=== PATIENT | female | born 1985 | race Two or more races ===

== ENCOUNTER 2019-03-26 15:16 | Emergency (ER) | payer OTHER ==
[~2019-03-26] VITALS: Ht 160 cm; Wt 63.5 kg
[2019-03-26 15:37] VITALS: BP 109/63
[2019-03-26] MEDS ORDERED: METH4TAB2 PO (16:21)
--- NOTE | 2019-03-26 16:22 | PHYS DOC ---
Past Medical History Past Medical History: No Pertinent History Past Surgical History: No Surgical History Alcohol Use: None Drug Use: None Adult General Chief Complaint Chief Complaint: ITCHING HPI HPI Patient is a 34 year old female who presents with be in pain urinating, cetirizine and ibuprofen daily of March and stated every time she took the ibuprofen [place] having itching and hives on her upper legs and lower abdomen. She states she took her ibuprofen again on Saturday and began itching and breaking out in a itchy rash on her upper thighs. She states she's gotten better but is here today for the rash. Review of Systems Review of Systems Constitutional: Denies fever or chills [] Eyes: Denies change in visual acuity, redness, or eye pain [] HENT: Denies nasal congestion or sore throat [] Respiratory: Denies cough or shortness of breath [] Cardiovascular: No additional information not addressed in HPI [] GI: Denies abdominal pain, nausea, vomiting, bloody stools or diarrhea [] : Denies dysuria or hematuria [] Musculoskeletal: Denies back pain or joint pain [] Integument: bilateral upper thigh rash or skin lesions [] Neurologic: Denies headache, focal weakness or sensory changes [] Endocrine: Denies polyuria or polydipsia [] All other systems were reviewed and found to be within normal limits, except as documented in this note. Allergies Allergies Allergies Coded Allergies Type Severity Reaction Last Updated Verified No Known Drug Allergies 03/26/19 No Physical Exam Physical Exam Constitutional: Well developed, well nourished, no acute distress, non-toxic appearance. [] HENT: Normocephalic, atraumatic, bilateral external ears normal, oropharynx moist, no oral exudates, nose normal. [] Eyes: PERRLA, EOMI, conjunctiva normal, no discharge. [] Neck: Normal range of motion, no tenderness, supple, no stridor. [] Cardiovascular:Heart rate regular rhythm, no murmur [] Lungs & Thorax: Bilateral breath sounds clear to auscultation [] Abdomen: Bowel sounds normal, soft, no tenderness, no masses, no pulsatile masses. [] Skin: Bilateral upper thigh red patchy rash that appears to be hives. Warm, dry, no erythema, no rash. [] Back: No tenderness, no CVA tenderness. [] Extremities: No tenderness, no cyanosis, no clubbing, ROM intact, no edema. [] Neurologic: Alert and oriented X 3, normal motor function, normal sensory function, no focal deficits noted. [] Psychologic: Affect normal, judgement normal, mood normal. [] Current Patient Data Vital Signs Vital Signs Date Time Temp Pulse Resp B/P (MAP) Pulse Ox O2 Delivery O2 Flow Rate FiO2 03/26/19 15:37 98.4 88 18 109/63 (78) 99 Room Air 98.4 EKG EKG [] Radiology/Procedures Radiology/Procedures [] Course & Med Decision Making Course & Med Decision Making Patient is a 34 year old female who presents with be in pain urinating, cetirizine and ibuprofen daily of March and stated every time she took the ibuprofen Saturday last and began having itching and hives on her upper legs and lower abdomen. She states she took her ibuprofen again on Saturday and began itching and breaking out in a itchy rash on her upper thighs. She states she's gotten better but is here today for the rash. Patient has a patchy red rash that is very itchy for the patient on her upper thighs bilaterally. Patient denies shortness of breath, chest pain, vomiting or nausea or dizziness. Patient denies any itching in her mouth. When examining oral cavity there is no rash or hives seen in the mouth and throat and there is no swelling of the oral cavity. Patient states that this rash has gotten better since Saturday and was more widespread. Vital signs within normal limits. Lungs are clear to auscultation in all lobes. Speaks in full clear sentences. Patient is put on a Medrol Dosepak and told to stop taking ibuprofen. Patient can take Tylenol for any kind of pain. Patient is told to continue taking the ranitidine and cetirizine. Dragon Disclaimer Dragon Disclaimer This electronic medical record was generated, in whole or in part, using a voice recognition dictation system. Departure Departure Impression: Primary Impression: Hives Disposition: 01 HOME, SELF-CARE Condition: STABLE Referrals: UNKNOWN PCP NAME (PCP) Patient Instructions: Hives Additional Instructions: Do not take ibuprofen. Take Tylenol for pain. Take medication as prescribed. Scripts Methylprednisolone (MEDROL) 4 Mg Tab.ds.pk 1 PKG PO UD, #1 PKG Prov: MALLORIE YIP APRN 03/26/19 MALLORIE YIP APRN Mar 26, 2019 16:21
== END 2019-03-26 16:41 | disposition home or self-care (01) ==
LOC: ER 15:16
DX: L50.9 Urticaria, unspecified (principal)
CPT/HCPCS: 99283